=== PATIENT | male | born 1935 | race Caucasian/White ===

== ENCOUNTER 2017-10-11 04:24 | Inpatient (IN) | payer MEDICARE, OTHER ==
[2017-10-11] MEDS ORDERED: Albuterol/Ipratropium 3.0-0.5 MG/3 ML Neb Soln NEB ONE (04:28)
[2017-10-11] MEDS ORDERED: Lactated Ringers 1,000 ML IV ONE ×2 (04:30→14:00)
[2017-10-11] MEDS ORDERED: cefTRIAXone 1 GM Vial IVPUSH ONE (04:30)
--- NOTE | 2017-10-11 04:36 | EDM.PDOC ---
ED HPI GENERAL MEDICAL PROBLEM - General Chief Complaint: Respiratory Problem Stated Complaint: Shortness of breath/Fever Time Seen by Provider: 10/11/17 04:27 Source of Information: Reports: Patient, Family, Old Records, RN, RN Notes Reviewed History Limitations: Reports: No Limitations - History of Present Illness INITIAL COMMENTS - FREE TEXT/NARRATIVE: Patient presents emergency room at [facility] complaining of worsening shortness of breath, cough, fever, and weakness. The symptoms began well over a week ago. The patient was seen at the [facility] by his PCP last Wednesday. It was felt at that time the patient had an acute COPD exacerbation, therefore he was placed on prednisone burst dose and was told to follow-up as symptoms warrant. The patient states that since his clinic visit, his shortness of breath has progressively gotten worse. The patient states that his cough is also becoming more productive. The patient is had low-grade fevers at home. The patient is on home oxygen at 2 L. The patient states he tried to refill his take this morning and was unable to. It is not exactly clear if the patient has been without his oxygen throughout the day today. The patient states that he has only slept for the past couple of hours. The patient states that his chest hurts from coughing. This chest discomfort radiates to his back. The patient also complains of a slight headache. The patient states his temperature at home was 100.8 around 22:30 last night. Otherwise no other concerns. Onset Date: 10/04/17 Duration: Getting Worse Location: Reports: Chest Quality: Reports: Burning Severity: Mild Improves with: Reports: Rest Worsens with: Reports: Breathing, Other (harsh cough) Associated Symptoms: Reports: cough w sputum, Shortness of Breath Treatments CHEMISTRY DEPARTMENT CHAIR: Reports: Other (see below) (See HPI) Chest/Upper Back Pain Score (Numeric/FACES): 4 - Related Data Allergies Allergy/AdvReac Type Severity Reaction Status Date / Time No Known Allergies Allergy Verified 10/11/17 04:25 ED ROS GENERAL - Review of Systems Review Of Systems: See Below Constitutional: Reports: Fever, Chills, Weakness HEENT: Reports: No Symptoms Respiratory: Reports: Shortness of Breath, Wheezing, Cough, Sputum Cardiovascular: Denies: Chest Pain, Palpitations GI/Abdominal: Denies: Abdominal Pain, Nausea, Vomiting Skin: Reports: No Symptoms Neurological: Reports: Headache. Denies: Dizziness, Numbness, Paresthesia, Tingling ED EXAM, GENERAL - Physical Exam Exam: See Below Exam Limited By: No Limitations General Appearance: Alert, No Apparent Distress Respiratory/Chest: No Respiratory Distress, Decreased Breath Sounds, Rhonchi, Wheezing Cardiovascular: Normal Peripheral Pulses, Regular Rate, Rhythm Peripheral Pulses: 2+: Radial (L), Radial (R) GI/Abdominal: Normal Bowel Sounds, Soft, Non-Tender Neurological: Alert, Oriented Skin Exam: Warm, Dry, Intact, Normal Color EKG INTERPRETATION EKG Date: 10/11/17 Time: 04:40 Rhythm: NSR Rate (Beats/Min): 108 [place]: Normal P-Wave: Present QRS: Normal ST-T: Normal QT: Normal AL/PQ Interval: 0.14 Comparison: No Change EKG Interpretation Comments: 1. Sinus Tachycardia 2. Abnormal Rhythm ECG Course - Vital Signs Last Recorded V/S: Last Vital Signs Temp 37.9 C 10/11/17 04:25 Pulse 109 H 10/11/17 05:38 Resp 22 H 10/11/17 05:38 BP 122/63 10/11/17 05:38 Pulse Ox 92 L 10/11/17 05:38 - Orders/Labs/Meds Orders: Active Orders 24 hr Category Date Time Status Admission Status [Patient Status] [ADT] Routine ADT 10/11/17 05:59 Ordered RT Aerosol Therapy [RC] ASDIRECTED Care 10/11/17 04:28 Active Chest 2V [CR] Stat Exams 10/11/17 04:27 Taken CULTURE BLOOD [BC] Stat Lab 10/11/17 04:51 Received CULTURE BLOOD [BC] Stat Lab 10/11/17 05:00 Received UA W/MICROSCOPIC [URIN] Stat Lab 10/11/17 05:54 Ordered Sodium Chloride 0.9% [Saline Flush] Med 10/11/17 04:28 Active 10 ml FLUSH ASDIRECTED PRN Blood Culture x2 Reflex Set [OM.PC] Stat Oth 10/11/17 04:27 Ordered Peripheral IV Insertion Adult [OM.PC] Routine Oth 10/11/17 04:28 Ordered Medication Orders Sodium Chloride (Saline Flush) 10 ml FLUSH ASDIRECTED PRN PRN Reason: Keep Vein Open Labs: Laboratory Tests 10/11/17 10/11/17 10/11/17 Range/Units 04:51 04:51 04:51 WBC 29.0 H* (4.0-10.0) x10^3/uL RBC 5.02 (4.5-6.0) x10^6/uL Hgb 17.1 (14.0-18.0) g/dL Hct 50.7 (40.0-52.0) % MCV 101.0 H (78.0-93.0) fL MCH 34.1 H (26.0-32.0) pg MCHC 33.7 (32.0-36.0) g/dL RDW Coeff of Kayli 14.3 (10.0-15.0) % Plt Count 203 (130-400) x10^3/uL Add Manual Diff Yes Neutrophils % (Manual) 46 L (50-80) % Band Neutrophils % 7 H (0-6) % Lymphocytes % (Manual) 38 (25-50) % Monocytes % (Manual) 6 (2-11) % Eosinophils % (Manual) 1 (0-4) % Blast Cells % 2 H (0) % Smudge Cells Moderate H Platelet Estimate Adequate POC ABG pH (7.35-7.45) POC ABG pCO2 (35-45) mmHG POC ABG pO2 (80-105) mmHG POC ABG HCO3 (22-26) mmol/L POC ABG Total CO2 (23-27) mmol/L POC ABG O2 Sat (95-98) % POC ABG Base Excess (-2-3) mmol/L POC FiO2 Sodium 138 (136-145) mmol/L Potassium 3.9 (3.5-5.1) mmol/L Chloride 101 (98-107) mmol/L Carbon Dioxide 30 (21-32) mmol/L Anion Gap 10.9 (10-20) mmol/L BUN 16 (7-18) mg/dL Creatinine 1.0 (0.70-1.30) mg/dL Est Cr Clr Drug Dosing 63.59 mL/min Estimated GFR (MDRD) > 60 Glucose 155 H (74-106) mg/dL Lactic Acid 1.0 (0.4-2.0) mmol/L Calcium 8.5 (8.5-10.1) mg/dL Corrected Calcium 8.58 (8.5-10.1) mg/dL Total Bilirubin 1.0 (0.2-1.0) mg/dL AST 17 (15-37) U/L ALT 25 (16-63) U/L Alkaline Phosphatase 79 (46-116) U/L Creatine Kinase (39-308) U/L Troponin I (<=0.056) ng/mL C-Reactive Protein 4.2 H (<=0.9) mg/dL Total Protein 7.2 (6.4-8.2) g/dL Albumin 3.9 (3.4-5.0) g/dL Globulin 3.3 Albumin/Globulin Ratio 1.18 Urine Color (YELLOW) Urine Appearance (CLEAR) Urine pH (5.0-8.0) Ur Specific Orma Urine Protein (NEGATIVE) mg/dL Urine Glucose (UA) (NEGATIVE) mg/dL Urine Ketones (NEGATIVE) mg/dL Urine Occult Blood (NEGATIVE) Urine Nitrite (NEGATIVE) Urine Bilirubin (NEGATIVE) Urine Urobilinogen (0.2) EU/dL Ur Leukocyte Esterase (NEGATIVE) Urine RBC (NOT SEEN) /HPF Urine WBC (NOT SEEN) /HPF Ur Squamous Epith Cells (NEGATIVE) /HPF Urine Bacteria (NEGATIVE) /HPF Urine Mucus (NEGATIVE) /LPF 10/11/17 10/11/17 10/11/17 Range/Units 04:51 05:14 05:54 WBC (4.0-10.0) x10^3/uL RBC (4.5-6.0) x10^6/uL Hgb (14.0-18.0) g/dL Hct (40.0-52.0) % MCV (78.0-93.0) fL MCH (26.0-32.0) pg MCHC (32.0-36.0) g/dL RDW Coeff of Kayli (10.0-15.0) % Plt Count (130-400) x10^3/uL Add Manual Diff Neutrophils % (Manual) (50-80) % Band Neutrophils % (0-6) % Lymphocytes % (Manual) (25-50) % Monocytes % (Manual) (2-11) % Eosinophils % (Manual) (0-4) % Blast Cells % (0) % Smudge Cells Platelet Estimate POC ABG pH 7.450 (7.35-7.45) POC ABG pCO2 39 (35-45) mmHG POC ABG pO2 62 L (80-105) mmHG POC ABG HCO3 27 H (22-26) mmol/L POC ABG Total CO2 28 H (23-27) mmol/L POC ABG O2 Sat 92 L (95-98) % POC ABG Base Excess 3 (-2-3) mmol/L POC FiO2 0.36 Sodium (136-145) mmol/L Potassium (3.5-5.1) mmol/L Chloride (98-107) mmol/L Carbon Dioxide (21-32) mmol/L Anion Gap (10-20) mmol/L BUN (7-18) mg/dL Creatinine (0.70-1.30) mg/dL Est Cr Clr Drug Dosing mL/min Estimated GFR (MDRD) Glucose (74-106) mg/dL Lactic Acid (0.4-2.0) mmol/L Calcium (8.5-10.1) mg/dL Corrected Calcium (8.5-10.1) mg/dL Total Bilirubin (0.2-1.0) mg/dL AST (15-37) U/L ALT (16-63) U/L Alkaline Phosphatase (46-116) U/L Creatine Kinase 59 (39-308) U/L Troponin I < 0.017 (<=0.056) ng/mL C-Reactive Protein (<=0.9) mg/dL Total Protein (6.4-8.2) g/dL Albumin (3.4-5.0) g/dL Globulin Albumin/Globulin Ratio Urine Color Dark yellow H (YELLOW) Urine Appearance Clear (CLEAR) Urine pH 7.0 (5.0-8.0) Ur Specific Orma 1.015 Urine Protein Negative (NEGATIVE) mg/dL Urine Glucose (UA) Negative (NEGATIVE) mg/dL Urine Ketones Negative (NEGATIVE) mg/dL Urine Occult Blood Negative (NEGATIVE) Urine Nitrite Negative (NEGATIVE) Urine Bilirubin Negative (NEGATIVE) Urine Urobilinogen 0.2 (0.2) EU/dL Ur Leukocyte Esterase Negative (NEGATIVE) Urine RBC 0-5 (NOT SEEN) /HPF Urine WBC 0-5 (NOT SEEN) /HPF Ur Squamous Epith Cells Occasional H (NEGATIVE) /HPF Urine Bacteria Few H (NEGATIVE) /HPF Urine Mucus Few H (NEGATIVE) /LPF Meds: Medications Generic Name Dose Route Start Last Admin Trade Name Freq PRN Reason Stop Dose Admin Sodium Chloride 10 ml 10/11/17 04:28 Saline Flush FLUSH ASDIRECTED PRN Keep Vein Open Discontinued Medications Generic Name Dose Route Start Last Admin Trade Name Frank PRN Reason Stop Dose Admin Albuterol/Ipratropium 3 ml 10/11/17 04:28 10/11/17 04:47 Duoneb 3.0-0.5 Mg/3 Ml NEB 10/11/17 04:29 3 ml ONETIME ONE Administration Ceftriaxone Sodium 1 gm 10/11/17 04:30 10/11/17 04:56 Rocephin IVPUSH 10/11/17 04:31 1 gm ONETIME ONE Administration Lactated Ringer's 1,000 mls @ 999 mls/hr 10/11/17 04:30 10/11/17 04:56 Ringers, Lactated IV 10/11/17 05:30 999 mls/hr ONETIME ONE Administration - Radiology Interpretation Free Text/Narrative:: CXR: Probable bilateral bibasilar atelectasis versus parenchymal or pleural scarring. Somewhat indistinct nodularity in the left lower hemithorax may be secondary to superimposing basilar and osseous structures. Follow-up PA and lateral views of the chest suggested. See scanned report in EMR Departure - Departure Time of Disposition: 06:05 Disposition: Admitted As Inpatient 67 Condition: Good Clinical Impression: Pneumonia Qualifiers: Pneumonia type: due to unspecified organism Laterality: left Lung location: lower lobe of lung Qualified Code(s): J18.1 - Lobar pneumonia, unspecified organism - Discharge Information ED Communication - ED Communication Date/Time Date: 10/11/17 Time Called: 05:55 - Discussed Case With (1) Discussed Case With (1): Admitting Provider (Dr. Yoder) - Conversation Summary Admitting Provider Agreed to Patient's Admission: Yes Patient Aware of Amendments fo Care Plan: Yes - Problem List Review Problem List Initiated/Reviewed/Updated: Yes - My Orders Last 24 Hours: My Active Orders 10/11/17 04:27 Chest 2V [CR] Stat Blood Culture x2 Reflex Set [OM.PC] Stat 10/11/17 04:28 RT Aerosol Therapy [RC] ASDIRECTED Sodium Chloride 0.9% [Saline Flush] 10 ml FLUSH ASDIRECTED PRN Peripheral IV Insertion Adult [OM.PC] Routine 10/11/17 04:51 CULTURE BLOOD [BC] Stat 10/11/17 05:00 CULTURE BLOOD [BC] Stat 10/11/17 05:54 UA W/MICROSCOPIC [URIN] Stat 10/11/17 05:59 Admission Status [Patient Status] [ADT] Routine - Assessment/Plan Last 24 Hours: My Active Orders 10/11/17 04:27 Chest 2V [CR] Stat Blood Culture x2 Reflex Set [OM.PC] Stat 10/11/17 04:28 RT Aerosol Therapy [RC] ASDIRECTED Sodium Chloride 0.9% [Saline Flush] 10 ml FLUSH ASDIRECTED PRN Peripheral IV Insertion Adult [OM.PC] Routine 10/11/17 04:51 CULTURE BLOOD [BC] Stat 10/11/17 05:00 CULTURE BLOOD [BC] Stat 10/11/17 05:54 UA W/MICROSCOPIC [URIN] Stat 10/11/17 05:59 Admission Status [Patient Status] [ADT] Routine Assessment:: Pneumonia Plan: Case discussed with Dr. Yoder. Patient will be admitted acute for pneumonia. Dr. Yoder will admit patient for Dr. Monzon.
[2017-10-11 05:48] LABS: CHLORIDE,CL 101 mmol/L (98-107); SODIUM,NA 138 mmol/L (136-145)
--- NOTE | 2017-10-11 07:07 | PCM.HP ---
H&P History of Present Illness - General Date of Service: 10/11/17 Admit Problem/Dx: Admission Diagnosis/Problem Admission Diagnosis/Problem Pneumonia Source of Information: Patient History Limitations: Reports: No Limitations - History of Present Illness Initial Comments - Free Text/Narative: Chief complaint: Shortness of breath and cough Mr. Rodriguez is an 82-year-old male with COPD. CLL started having cough productive of white sputum, coryza., Sore chest from coughing 6 days ago. Patient received 20 mg of prednisone for COPD exacerbation felt better for a few days and then for the last 2 days has had increased shortness of breath, cough still productive of whitish sputum, chest pain with coughing and headache. Patient has had some night sweats chills and fever. Temperature was 100.8 last night and he did not sleep all night. In the emergency room he was found to have probable right lower lobe pneumonia, white count of 29,000 with a baseline white count of 19,000 and he is admitted for treatment of pneumonia Chest/Upper Back Pain Score (Numeric/FACES): 4 - Related Data Allergies/Adverse Reactions: Allergies Allergy/AdvReac Type Severity Reaction Status Date / Time No Known Allergies Allergy Verified 10/11/17 04:25 Past Medical History HEENT History: Reports: Hard of Hearing Cardiovascular History: Reports: None Respiratory History: Reports: COPD (Patient is on home O2, 2 L at rest, up to 4 L with activity), Other (See Below) (Asbestosis) Gastrointestinal History: Reports: None Genitourinary History: Reports: Other (See Below) (Bladder cancer, just finished 3 weeks of BCG installation which he receives every 3 months. Patient is currently cancer free. He self catheters twice a day) Musculoskeletal History: Reports: None Neurological History: Reports: None Psychiatric History: Reports: None Endocrine/Metabolic History: Reports: None Hematologic History: Reports: Other (See Below) (Patient has CLL without any treatment. 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) Oncologic (Cancer) History: Reports: Leukemia (CLL) Dermatologic History: Reports: None - Infectious Disease History Infectious Disease History: Reports: None - Past Surgical History HEENT Surgical History: Reports: Tonsillectomy GI Surgical History: Reports: Hernia, Inguinal (Right), Polypectomy (Has not had a colonoscopy many years, no family history of colon cancer) Male Surgical History: Reports: TURBT-Transurethral Resection of Bladder Tumor Social & Family History - Family History Family Medical History: Noncontributory - Tobacco Use Smoking Status *Q: Former Smoker (quit 30 years ago) Used Tobacco, but Quit: Yes Month/Year Tobacco Last Used: 30 years ago - Alcohol Use Alcohol Use History: Yes Total Drinks Per Week Comment: Has a half a beer every few weeks - Recreational Drug Use Recreational Drug Use: No - Living Situation & Occupation Living situation: Reports: Occupation: Retired (Patient is with two-story house 2 children are in the [facility] area one incident [place] and one is in [place]. 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) H&P Review of Systems - Review of Systems: Review Of Systems: See Below General: Reports: Fever, Chills, Night Sweats HEENT: Reports: Headaches, Hearing Changes, Rhinitis, Post Nasal Drip, Other ( hAs visual changes on his right eye with cataract and question retinal problem) Pulmonary: Reports: Shortness of Breath, Wheezing, Pleuritic Chest Pain, Cough, Sputum Cardiovascular: Reports: No Symptoms Gastrointestinal: Reports: Constipation (Constipations intermittently) Genitourinary: Reports: Retention (Patient up at least once a night, he does self catheters twice a day but does spontaneously urinate) Musculoskeletal: Reports: No Symptoms Skin: Reports: Dryness (Patient has dry spots on his elbows where he leans frequently) Psychiatric: Reports: No Symptoms Neurological: Reports: No Symptoms Hematologic/Lymphatic: Reports: Easy Bleeding (Baby aspirin every other day because of nosebleeds) Exam - Exam Exam: See Below - Vital Signs Vital Signs: Last Vital Signs Temp 100.3 F 10/11/17 04:25 Pulse 110 H 10/11/17 06:00 Resp 22 H 10/11/17 06:00 BP 127/77 10/11/17 06:00 Pulse Ox 93 L 10/11/17 06:00 Weight: 175 lb - Exam Quality Assessment: Supplemental Oxygen General: Alert, Oriented, Cooperative, Other (Coughing frequently) HEENT: Conjunctiva Clear, EOMI, Nares Patent, Other (Right lid is mildly ptotic intermittently) Neck: Supple, +2 Carotid Pulse wo Bruit Lungs: Rales, Rhonchi, Wheezing (Bilaterally at the bases in about senior care up on the right) Cardiovascular: Regular Rate, Regular Rhythm, Normal S2 GI/Abdominal Exam: Normal Bowel Sounds, Soft, Non-Tender, No Organomegaly, No Distention (Male) Exam: No Hernia Back Exam: Normal Inspection Extremities: Normal Inspection, Normal Range of Motion, Non-Tender, No Pedal Edema Skin: Warm, Dry, Intact, Other (Thickened skin seen on the left elbow, right elbow not seen because of IV dressing) Neurological: Cranial Nerves Intact, Strength Equal Bilateral, Normal Speech, Normal Tone Neuro Extensive - Mental Status: Alert, Normal Mood/Affect, Normal Cognition, Memory Intact Psychiatric: Alert, Normal Affect, Normal Mood - Patient Data Lab Results Last 24 hrs: Laboratory Results - last 24 hr 10/11/17 10/11/17 10/11/17 Range/Units 04:51 04:51 04:51 WBC 29.0 H* (4.0-10.0) x10^3/uL RBC 5.02 (4.5-6.0) x10^6/uL Hgb 17.1 (14.0-18.0) g/dL Hct 50.7 (40.0-52.0) % MCV 101.0 H (78.0-93.0) fL MCH 34.1 H (26.0-32.0) pg MCHC 33.7 (32.0-36.0) g/dL RDW Coeff of Kayli 14.3 (10.0-15.0) % Plt Count 203 (130-400) x10^3/uL Add Manual Diff Yes Neutrophils % (Manual) 46 L (50-80) % Band Neutrophils % 7 H (0-6) % Lymphocytes % (Manual) 38 (25-50) % Monocytes % (Manual) 6 (2-11) % Eosinophils % (Manual) 1 (0-4) % Blast Cells % 2 H (0) % Smudge Cells Moderate H Platelet Estimate Adequate POC ABG pH (7.35-7.45) POC ABG pCO2 (35-45) mmHG POC ABG pO2 (80-105) mmHG POC ABG HCO3 (22-26) mmol/L POC ABG Total CO2 (23-27) mmol/L POC ABG O2 Sat (95-98) % POC ABG Base Excess (-2-3) mmol/L POC FiO2 Sodium 138 (136-145) mmol/L Potassium 3.9 (3.5-5.1) mmol/L Chloride 101 (98-107) mmol/L Carbon Dioxide 30 (21-32) mmol/L Anion Gap 10.9 (10-20) mmol/L BUN 16 (7-18) mg/dL Creatinine 1.0 (0.70-1.30) mg/dL Est Cr Clr Drug Dosing 63.59 mL/min Estimated GFR (MDRD) > 60 Glucose 155 H (74-106) mg/dL Lactic Acid 1.0 (0.4-2.0) mmol/L Calcium 8.5 (8.5-10.1) mg/dL Corrected Calcium 8.58 (8.5-10.1) mg/dL Total Bilirubin 1.0 (0.2-1.0) mg/dL AST 17 (15-37) U/L ALT 25 (16-63) U/L Alkaline Phosphatase 79 (46-116) U/L Creatine Kinase (39-308) U/L Troponin I (<=0.056) ng/mL C-Reactive Protein 4.2 H (<=0.9) mg/dL Total Protein 7.2 (6.4-8.2) g/dL Albumin 3.9 (3.4-5.0) g/dL Globulin 3.3 Albumin/Globulin Ratio 1.18 Urine Color (YELLOW) Urine Appearance (CLEAR) Urine pH (5.0-8.0) Ur Specific Equality Urine Protein (NEGATIVE) mg/dL Urine Glucose (UA) (NEGATIVE) mg/dL Urine Ketones (NEGATIVE) mg/dL Urine Occult Blood (NEGATIVE) Urine Nitrite (NEGATIVE) Urine Bilirubin (NEGATIVE) Urine Urobilinogen (0.2) EU/dL Ur Leukocyte Esterase (NEGATIVE) Urine RBC (NOT SEEN) /HPF Urine WBC (NOT SEEN) /HPF Ur Squamous Epith Cells (NEGATIVE) /HPF Urine Bacteria (NEGATIVE) /HPF Urine Mucus (NEGATIVE) /LPF 10/11/17 10/11/17 10/11/17 Range/Units 04:51 05:14 05:54 WBC (4.0-10.0) x10^3/uL RBC (4.5-6.0) x10^6/uL Hgb (14.0-18.0) g/dL Hct (40.0-52.0) % MCV (78.0-93.0) fL MCH (26.0-32.0) pg MCHC (32.0-36.0) g/dL RDW Coeff of Kayli (10.0-15.0) % Plt Count (130-400) x10^3/uL Add Manual Diff Neutrophils % (Manual) (50-80) % Band Neutrophils % (0-6) % Lymphocytes % (Manual) (25-50) % Monocytes % (Manual) (2-11) % Eosinophils % (Manual) (0-4) % Blast Cells % (0) % Smudge Cells Platelet Estimate POC ABG pH 7.450 (7.35-7.45) POC ABG pCO2 39 (35-45) mmHG POC ABG pO2 62 L (80-105) mmHG POC ABG HCO3 27 H (22-26) mmol/L POC ABG Total CO2 28 H (23-27) mmol/L POC ABG O2 Sat 92 L (95-98) % POC ABG Base Excess 3 (-2-3) mmol/L POC FiO2 0.36 Sodium (136-145) mmol/L Potassium (3.5-5.1) mmol/L Chloride (98-107) mmol/L Carbon Dioxide (21-32) mmol/L Anion Gap (10-20) mmol/L BUN (7-18) mg/dL Creatinine (0.70-1.30) mg/dL Est Cr Clr Drug Dosing mL/min Estimated GFR (MDRD) Glucose (74-106) mg/dL Lactic Acid (0.4-2.0) mmol/L Calcium (8.5-10.1) mg/dL Corrected Calcium (8.5-10.1) mg/dL Total Bilirubin (0.2-1.0) mg/dL AST (15-37) U/L ALT (16-63) U/L Alkaline Phosphatase (46-116) U/L Creatine Kinase 59 (39-308) U/L Troponin I < 0.017 (<=0.056) ng/mL C-Reactive Protein (<=0.9) mg/dL Total Protein (6.4-8.2) g/dL Albumin (3.4-5.0) g/dL Globulin Albumin/Globulin Ratio Urine Color Dark yellow H (YELLOW) Urine Appearance Clear (CLEAR) Urine pH 7.0 (5.0-8.0) Ur Specific Equality 1.015 Urine Protein Negative (NEGATIVE) mg/dL Urine Glucose (UA) Negative (NEGATIVE) mg/dL Urine Ketones Negative (NEGATIVE) mg/dL Urine Occult Blood Negative (NEGATIVE) Urine Nitrite Negative (NEGATIVE) Urine Bilirubin Negative (NEGATIVE) Urine Urobilinogen 0.2 (0.2) EU/dL Ur Leukocyte Esterase Negative (NEGATIVE) Urine RBC 0-5 (NOT SEEN) /HPF Urine WBC 0-5 (NOT SEEN) /HPF Ur Squamous Epith Cells Occasional H (NEGATIVE) /HPF Urine Bacteria Few H (NEGATIVE) /HPF Urine Mucus Few H (NEGATIVE) /LPF Result Diagrams: 10/11/17 04:51 10/11/17 04:51 - Problem List (1) Pneumonia SNOMED Code(s): 915109155 ICD Code: J18.9 - PNEUMONIA, UNSPECIFIED ORGANISM Status: Acute Current Visit: Yes Qualifiers: Pneumonia type: due to unspecified organism Laterality: left Lung location: lower lobe of lung Qualified Code(s): J18.1 - Lobar pneumonia, unspecified organism (2) CLL (chronic lymphocytic leukemia) SNOMED Code(s): 09402500 ICD Code: C91.90 - LYMPHOID LEUKEMIA, UNSPECIFIED NOT HAVING ACHIEVED REMISSION Status: Acute Current Visit: Yes (3) COPD (chronic obstructive pulmonary disease) SNOMED Code(s): 72220551 ICD Code: J44.9 - CHRONIC OBSTRUCTIVE PULMONARY DISEASE, UNSPECIFIED Status : Acute Current Visit: Yes (4) Pulmonary asbestosis SNOMED Code(s): 95207863 ICD Code: J61 - PNEUMOCONIOSIS DUE TO ASBESTOS AND OTHER MINERAL FIBERS Status: Acute Current Visit: Yes (5) Bladder cancer SNOMED Code(s): 220666618 ICD Code: C67.9 - MALIGNANT NEOPLASM OF BLADDER, UNSPECIFIED Status: Acute Current Visit: Yes Problem List Initiated/Reviewed/Updated: Yes Orders Last 24hrs: Active Orders 24 hr Category Date Time Status Admission Status [Patient Status] [ADT] Routine ADT 10/11/17 05:59 Active RT Aerosol Therapy [RC] ASDIRECTED Care 10/11/17 04:28 Active Chest 2V [CR] Stat Exams 10/11/17 04:27 Taken CULTURE BLOOD [BC] Stat Lab 10/11/17 04:51 Received CULTURE BLOOD [BC] Stat Lab 10/11/17 05:00 Received UA W/MICROSCOPIC [URIN] Stat Lab 10/11/17 05:54 Ordered Sodium Chloride 0.9% [Saline Flush] Med 10/11/17 04:28 Active 10 ml FLUSH ASDIRECTED PRN Blood Culture x2 Reflex Set [OM.PC] Stat Oth 10/11/17 04:27 Ordered Peripheral IV Insertion Adult [OM.PC] Routine Oth 10/11/17 04:28 Ordered Medication Orders Sodium Chloride (Saline Flush) 10 ml FLUSH ASDIRECTED PRN PRN Reason: Keep Vein Open Assessment/Plan Comment:: 1. Right lower lobe pneumonia: We'll treat with Rocephin and azithromycin and doxycycline, oxygen as needed up to 4 L, aggressive pulmonary toilet with flutter valve and nebulizations 2. Bladder CA: Continue with self 3. CLL: Follow CBC, baseline is 19,000 white count 4. Easy bleeding: Start low-dose Lovenox but if there is any bleeding stop Patient wishes to Code level 2 5. COPD: Continue oral steroids, switched to many meds
[2017-10-11] MEDS ORDERED: Enoxaparin 30 MG/0.3 ML Syringe SUBCUT SCH (07:45)
[2017-10-11] MEDS: Albuterol/Ipratropium 3.0-0.5 MG/3 ML Neb Soln NEB SCH ×3 (08:10→14:41)
[2017-10-11] MEDS: Aspirin 81 MG Tab.EC PO SCH (09:35)
[2017-10-11] MEDS: predniSONE 20 MG Tab PO SCH (09:35)
[2017-10-11] MEDS: Azithromycin 250 MG Tab PO SCH (09:35)
--- NOTE | 2017-10-11 14:16 | PCM.SN ---
- Free Text/Narrative Note: Called by nursing due to hypotension. Went to assess patient. He is resting in bed comfortably and denies any concerns. He is awake and answers questions appropriately. No increase in shortness of breath. Has chest wall soreness from coughing but denies any other chest pain. Vitals reviewed. Heart with RRR and normal S1 and S2. Lungs with diffusely diminished breath sounds and wheezing throughout. Abdomen soft, nontender, nondistended. Will give 500 cc bolus of LR and check BP every 15 minutes until stable x 2. Nursing and patient comfortable with this plan. Confirmed with patient that he is DNR/DNI. He is ok with transfer to [place] if needed from a medication standpoint (i.e. if he needs pressors).
[2017-10-12] MEDS: Albuterol/Ipratropium 3.0-0.5 MG/3 ML Neb Soln NEB SCH ×8 (04:06→22:46)
[2017-10-12] MEDS: cefTRIAXone 1 GM Vial IVPUSH SCH ×2 (04:07→20:09)
[2017-10-12] MEDS: Simvastatin 20 MG Tab PO SCH ×2 (04:07→20:10)
[2017-10-12] MEDS: Aspirin 81 MG Tab.EC PO SCH (08:07)
[2017-10-12] MEDS: predniSONE 20 MG Tab PO SCH (08:07)
[2017-10-12] MEDS: Azithromycin 250 MG Tab PO SCH (08:07)
[2017-10-12] MEDS: Sodium Chloride 0.9% 10 ML Syringe FLUSH PRN ×2 (08:13→20:09)
--- NOTE | 2017-10-12 10:59 | PCM.PN ---
- General Info Date of Service: 10/12/17 Subjective Update: Patient is feeling somewhat better this morning. Is still coughing but feels the sputum is more easily cleared than yesterday. No fever or chills. Breathing is at baseline. Appetite is good. Rib soreness is improved from yesterday. He has no other concerns. - Review of Systems General: Reports: No Symptoms HEENT: Reports: No Symptoms Pulmonary: Reports: Cough Cardiovascular: Reports: No Symptoms Gastrointestinal: Reports: No Symptoms Genitourinary: Reports: No Symptoms Musculoskeletal: Reports: No Symptoms Skin: Reports: No Symptoms - Patient Data Vitals - Most Recent: Last Vital Signs Temp 36.9 C 10/12/17 10:00 Pulse 87 10/12/17 10:00 Resp 20 10/12/17 10:00 BP 109/72 10/12/17 10:00 Pulse Ox 91 L 10/12/17 10:00 Weight - Most Recent: 74.843 kg I&O - Last 24 Hours: Intake & Output 10/11/17 10/12/17 10/12/17 22:59 06:59 14:59 Intake Total 680 680 540 Output Total 2600 3100 250 Balance -1920 -2420 290 Lab Results Last 24 Hours: Laboratory Results - last 24 hr 10/12/17 Range/Units 06:48 WBC 25.2 H* (4.0-10.0) x10^3/uL RBC 4.68 (4.5-6.0) x10^6/uL Hgb 16.0 (14.0-18.0) g/dL Hct 47.9 (40.0-52.0) % MCV 102.4 H (78.0-93.0) fL MCH 34.2 H (26.0-32.0) pg MCHC 33.4 (32.0-36.0) g/dL RDW Coeff of Kayli 14.4 (10.0-15.0) % Plt Count 200 (130-400) x10^3/uL Add Manual Diff Yes Neutrophils % (Manual) 38 L (50-80) % Lymphocytes % (Manual) 52 H (25-50) % Atypical Lymphs % 9 H (0) % Monocytes % (Manual) 1 L (2-11) % Smudge Cells Few H Platelet Estimate Adequate Osmar Results Last 24 Hours: Microbiology 10/11/17 05:00 Aerobic Blood Culture - Preliminary Blood - Venous - Lab Draw NO GROWTH AFTER 1 DAY Anaerobic Blood Culture - Preliminary NO GROWTH AFTER 1 DAY 10/11/17 04:51 Aerobic Blood Culture - Preliminary Blood - Venous NO GROWTH AFTER 1 DAY Anaerobic Blood Culture - Preliminary NO GROWTH AFTER 1 DAY 10/11/17 08:20 Gram Stain - Final Sputum - Expectorated Med Orders - Current: Current Medications Albuterol/Ipratropium (Duoneb 3.0-0.5 Mg/3 Ml) 3 ml NEB Q4HRRT [facility] Last Admin: 10/12/17 10:55 Dose: 3 ml Aspirin (Halfprin) 81 mg PO WITHBREAKFAST [facility] Last Admin: 10/12/17 08:07 Dose: 81 mg Azithromycin (Zithromax) 250 mg PO DAILY [facility] Last Admin: 10/12/17 08:07 Dose: 250 mg Ceftriaxone Sodium (Rocephin) 1 gm IVPUSH BEDTIME [facility] Last Admin: 10/12/17 04:07 Dose: Not Given Prednisone (Prednisone) 20 mg PO WITHBREAKFAST [facility] Last Admin: 10/12/17 08:07 Dose: 20 mg Simvastatin (Zocor) 20 mg PO BEDTIME [facility] Last Admin: 10/12/17 04:07 Dose: Not Given Sodium Chloride (Saline Flush) 10 ml FLUSH ASDIRECTED PRN PRN Reason: Keep Vein Open Last Admin: 10/12/17 08:13 Dose: 10 ml Discontinued Medications Albuterol/Ipratropium (Duoneb 3.0-0.5 Mg/3 Ml) 3 ml NEB ONETIME ONE Stop: 10/11/17 04:29 Last Admin: 10/11/17 04:47 Dose: 3 ml Ceftriaxone Sodium (Rocephin) 1 gm IVPUSH ONETIME ONE Stop: 10/11/17 04:31 Last Admin: 10/11/17 04:56 Dose: 1 gm Enoxaparin Sodium (Lovenox) 30 mg SUBCUT Q24H [facility] Last Admin: 10/11/17 11:37 Dose: Not Given Lactated Ringer's (Ringers, Lactated) 1,000 mls @ 999 mls/hr IV ONETIME ONE Stop: 10/11/17 05:30 Last Admin: 10/11/17 04:56 Dose: 999 mls/hr Lactated Ringer's (Ringers, Lactated) 1,000 mls @ 500 mls/hr IV ONETIME ONE Stop: 10/11/17 15:59 Last Admin: 10/11/17 14:00 Dose: 500 mls/hr - Exam General: Alert, Cooperative, No Acute Distress HEENT: Mucous Membr. Moist/[place] Neck: Supple, Trachea Midline, No Thyromegaly, Lymphadenopathy Lungs: Normal Respiratory Effort, Decreased Breath Sounds (but improved air movement compared to yesterday), Crackles (RLL), Rhonchi (RLL), Wheezing ( throughout) Cardiovascular: Regular Rate, Regular Rhythm, No Murmurs GI/Abdominal Exam: Normal Bowel Sounds, Soft, Non-Tender, No Organomegaly, No Distention, No Mass Extremities: Normal Inspection, Non-Tender, No Pedal Edema Skin: Warm, Dry, Intact - Problem List & Annotations (1) Pneumonia SNOMED Code(s): 935606011 Code(s): J18.9 - PNEUMONIA, UNSPECIFIED ORGANISM Status: Acute Current Visit: Yes Qualifiers: Pneumonia type: due to unspecified organism Laterality: left Lung location: lower lobe of lung Qualified Code(s): J18.1 - Lobar pneumonia, unspecified organism Annotation/Comment:: - Patient is feeling somewhat better today. - WBC downtrending but still quite high. He is also relatively immune compromised in the setting of his CLL. - Would advise a full 48 hours of parenteral antibiotics prior to dismissal home. He is in agreement. - Continue ceftriaxone and azithromycin with plan to transition to cefdinir and azithromycin for homegoing. - Blood cultures pending. - He did meet sepsis criteria on admission but no longer does. Will bolus IV fluids as needed. (2) COPD (chronic obstructive pulmonary disease) SNOMED Code(s): 67794906 Code(s): J44.9 - CHRONIC OBSTRUCTIVE PULMONARY DISEASE, UNSPECIFIED Status : Acute Current Visit: Yes Qualifiers: COPD type: COPD with acute exacerbation Qualified Code(s): J44.1 - Chronic obstructive pulmonary disease with (acute) exacerbation Annotation/Comment:: - Also has acute COPD exacerbation. - Antibiotics as above. - He is on a rather low dose of prednisone but is responding to this well. Will continue. - Continue neb treatments as well. (3) CLL (chronic lymphocytic leukemia) SNOMED Code(s): 55103354 Code(s): C91.90 - LYMPHOID LEUKEMIA, UNSPECIFIED NOT HAVING ACHIEVED REMISSION Status: Chronic Current Visit: Yes Annotation/Comment:: - Baseline WBC ~ 19,000. - Is not currently undergoing treatment for this. (4) Bladder cancer SNOMED Code(s): 705136981 Code(s): C67.9 - MALIGNANT NEOPLASM OF BLADDER, UNSPECIFIED Status: Chronic Current Visit: Yes Qualifiers: Bladder location: unspecified site Qualified Code(s): C67.9 - Malignant neoplasm of bladder, unspecified Annotation/Comment:: - Patient to continue BID self catheterizations. - Problem List Review Problem List Initiated/Reviewed/Updated: Yes - My Orders Last 24 Hours: My Active Orders 10/13/17 05:11 BASIC METABOLIC PANEL,BMP [CHEM] Routine CBC WITH AUTO DIFF [HEME] Routine - Assessment Assessment:: 82 yo male admitted with community acquired pneumonia and COPD exacerbation. Feeling some improved today. Labs also improving but WBC still quite high. - Plan Plan:: See details under problems above. As described above, do feel he would benefit from a full 48 hours of parenteral antibiotics in light of his medical history. Therefore, he will remain admitted for 1 more night. Continue ceftriaxone and azithromycin. Oxygen per nasal cannula as per home dosing. Continue flutter valve and nebulizations. Home medications continued. He is not on lovenox as he has a history of significant bleeding just from a daily aspirin. Will do SCD's and encourage ambulation. Anticipate he will be prepared for dismissal tomorrow as long as his WBC continues to improve. He is DNR/DNI - noted on admission and confirmed by myself yesterday.
[2017-10-13] MEDS: Albuterol/Ipratropium 3.0-0.5 MG/3 ML Neb Soln NEB SCH ×2 (03:00→06:54)
[2017-10-13] MEDS: Azithromycin 250 MG Tab PO SCH (07:27)
[2017-10-13] MEDS: predniSONE 20 MG Tab PO SCH (07:27)
[2017-10-13] MEDS: Aspirin 81 MG Tab.EC PO SCH (07:27)
[2017-10-13 07:48] LABS: CHLORIDE,CL 104 mmol/L (98-107); SODIUM,NA 139 mmol/L (136-145)
--- NOTE | 2017-10-13 08:28 | PCM.DCSUM1 ---
Discharge Summary - Hospital Course Brief History: Mr. Rodriguez is an 82 yo male admitted with community acquired pneumonia and COPD exacerbation after presenting to the ER for cough and shortness of breath worsening despite outpatient prednisone started the week prior. - Discharge Data Discharge Date: 10/13/17 Discharge Disposition: Home, Self-Care 01 Condition: Good - Discharge Diagnosis/Problem(s) (1) Sepsis SNOMED Code(s): 90174051 ICD Code: A41.9 - SEPSIS, UNSPECIFIED ORGANISM Status: Resolved Current Visit: Yes Problem Details: Patient did meet sepsis criteria on admission with tachycardia, tachypnea, and leukocytosis. This is secondary to his pneumonia which was treated as above. Sepsis criteria resolved as of yesterday morning. Qualifiers: Sepsis type: sepsis due to unspecified organism Qualified Code(s): A41.9 - Sepsis, unspecified organism (2) Pneumonia SNOMED Code(s): 864841888 ICD Code: J18.9 - PNEUMONIA, UNSPECIFIED ORGANISM Status: Acute Current Visit: Yes Problem Details: Diagnosis made based on history and leukocytosis. Chest x-ray initially read as positive but overread as negative. Significant leukocytosis on admission but patient has higher baseline given CLL. He has been treated with ceftriaxone and azithromycin. His symptoms have progressively improved and his WBC have downtrended nicely. Blood cultures are negative. Sputum cultures show streptococcus viridans. Susceptibilities pending. Patient will be discharged on cefdinir and azithromycin, and we will call if this needs to be adjusted. Qualifiers: Pneumonia type: due to unspecified organism Laterality: left Lung location: lower lobe of lung Qualified Code(s): J18.1 - Lobar pneumonia, unspecified organism (3) COPD (chronic obstructive pulmonary disease) SNOMED Code(s): 00233512 ICD Code: J44.9 - CHRONIC OBSTRUCTIVE PULMONARY DISEASE, UNSPECIFIED Status : Acute Current Visit: Yes Problem Details: Patient also with evidence of COPD exacerbation. Antibiotics as above. He has also been treated with prednisone and nebulizer treatments with good results as well. His prednisone will be tapered and he will resume his home inhaler/nebulizer regimen. Qualifiers: COPD type: COPD with acute exacerbation Qualified Code(s): J44.1 - Chronic obstructive pulmonary disease with (acute) exacerbation (4) CLL (chronic lymphocytic leukemia) SNOMED Code(s): 17349057 ICD Code: C91.90 - LYMPHOID LEUKEMIA, UNSPECIFIED NOT HAVING ACHIEVED REMISSION Status: Chronic Current Visit: Yes Problem Details: Baseline WBC ~ 19,000. Is not currently undergoing treatment for this. (5) Bladder cancer SNOMED Code(s): 860803979 ICD Code: C67.9 - MALIGNANT NEOPLASM OF BLADDER, UNSPECIFIED Status: Chronic Current Visit: Yes Problem Details: Patient continued BID self catheterizations. Qualifiers: Bladder location: unspecified site Qualified Code(s): C67.9 - Malignant neoplasm of bladder, unspecified - Patient Summary/Data Operative Procedure(s) Performed: none Complications: none Consults: none Labs Pending at D/C: none Recommended Follow-up Testing/Procedures: none Planned Operative Procedure(s) after DC: none Hospital Course: See details as above. Patient's symptoms, vital signs, and labs improved progressively. He is feeling much better today and is prepared for dismissal home. He will continue antibiotics and prednisone as well as his home inhaler/ nebulizer treatments. He will follow-up in clinic with me next week. - Patient Instructions Diet: Usual Diet as Tolerated Notify Provider of: Fever - Discharge Plan Prescriptions/Med Rec: Azithromycin [IJD: Azithromycin] 250 mg PO DAILY #3 tablet Cefdinir [Omnicef] 300 mg PO BID #8 cap predniSONE 20 mg PO ASDIRECTED #10 tablet Home Medications: Home Meds Aspirin [Lo-Dose Aspirin EC] 81 mg PO DAILY 10/11/17 [History] Fluticasone/Salmeterol [Advair 250-50 Diskus] 1 puff INH BID 10/11/17 [History] Simvastatin [Zocor] 40 mg PO BEDTIME 10/11/17 [History] Tiotropium [Spiriva Handihaler] 2 puff INH DAILY 10/11/17 [History] Azithromycin [IJD: Azithromycin] 250 mg PO DAILY #3 tablet 10/13/17 [Rx] Cefdinir [Omnicef] 300 mg PO BID #8 cap 10/13/17 [Rx] predniSONE 20 mg PO ASDIRECTED #10 tablet 10/13/17 [Rx] Referrals: Shannon Monzon MD [Primary Care Provider] - 10/20/17 11:00 am (You have a follow up appt. with Dr. Monzon on October 19, 2017 at 11:00 at [facility]) - Discharge Summary/Plan Comment DC Time >30 min.: No - General Info Date of Service: 10/13/17 Subjective Update: Patient states he feels much better today. He is still coughing at times but this is more loose and less tight. His shortness of breath remains at baseline. No chest pain, fever, or chills. He is interested in going home today. - Review of Systems General: Reports: No Symptoms HEENT: Reports: No Symptoms Pulmonary: Reports: Cough Cardiovascular: Reports: No Symptoms Gastrointestinal: Reports: No Symptoms Genitourinary: Reports: No Symptoms Musculoskeletal: Reports: No Symptoms Skin: Reports: No Symptoms - Patient Data Vitals - Most Recent: Last Vital Signs Temp 36.6 C 10/13/17 05:30 Pulse 86 10/13/17 05:30 Resp 19 10/13/17 05:30 BP 119/53 L 10/13/17 05:30 Pulse Ox 94 L 10/13/17 06:55 Weight - Most Recent: 74.752 kg I&O - Last 24 hours: Intake & Output 10/12/17 10/13/17 10/13/17 22:59 06:59 14:59 Intake Total 720 550 Output Total 700 2000 Balance 20 -1450 Lab Results - Last 24 hrs: Laboratory Results - last 24 hr 10/13/17 10/13/17 Range/Units 06:38 06:38 WBC 22.7 H* (4.0-10.0) x10^3/uL RBC 4.41 L (4.5-6.0) x10^6/uL Hgb 14.8 (14.0-18.0) g/dL Hct 45.1 (40.0-52.0) % MCV 102.3 H (78.0-93.0) fL MCH 33.6 H (26.0-32.0) pg MCHC 32.8 (32.0-36.0) g/dL RDW Coeff of Kayli 14.1 (10.0-15.0) % Plt Count 204 (130-400) x10^3/uL Add Manual Diff Yes Neutrophils % (Manual) 36 L (50-80) % Lymphocytes % (Manual) 64 H (25-50) % Platelet Estimate Adequate Anisocytosis 1+ slight H Sodium 139 (136-145) mmol/L Potassium 3.7 (3.5-5.1) mmol/L Chloride 104 (98-107) mmol/L Carbon Dioxide 29 (21-32) mmol/L Anion Gap 9.7 L (10-20) mmol/L BUN 12 (7-18) mg/dL Creatinine 0.8 (0.70-1.30) mg/dL Est Cr Clr Drug Dosing 76.57 mL/min Estimated GFR (MDRD) > 60 Glucose 102 (74-106) mg/dL Calcium 8.5 (8.5-10.1) mg/dL ALEM Results - Last 24 hrs: Microbiology 10/11/17 05:00 Aerobic Blood Culture - Preliminary Blood - Venous - Lab Draw NO GROWTH AFTER 2 DAYS Anaerobic Blood Culture - Preliminary NO GROWTH AFTER 2 DAYS 10/11/17 04:51 Aerobic Blood Culture - Preliminary Blood - Venous NO GROWTH AFTER 2 DAYS Anaerobic Blood Culture - Preliminary NO GROWTH AFTER 2 DAYS 10/11/17 08:20 Gram Stain - Final Sputum - Expectorated Sputum Culture - Preliminary Alpha Hemolytic Strep Med Orders - Current: Current Medications Albuterol/Ipratropium (Duoneb 3.0-0.5 Mg/3 Ml) 3 ml NEB Q4HRRT [facility] Last Admin: 10/13/17 06:54 Dose: 3 ml Aspirin (Halfprin) 81 mg PO WITHBREAKFAST [facility] Last Admin: 10/13/17 07:27 Dose: 81 mg Azithromycin (Zithromax) 250 mg PO DAILY [facility] Last Admin: 10/13/17 07:27 Dose: 250 mg Ceftriaxone Sodium (Rocephin) 1 gm IVPUSH BEDTIME [facility] Last Admin: 10/12/17 20:09 Dose: 1 gm Prednisone (Prednisone) 20 mg PO WITHBREAKFAST [facility] Last Admin: 10/13/17 07:27 Dose: 20 mg Simvastatin (Zocor) 20 mg PO BEDTIME [facility] Last Admin: 10/12/17 20:10 Dose: 20 mg Sodium Chloride (Saline Flush) 10 ml FLUSH ASDIRECTED PRN PRN Reason: Keep Vein Open Last Admin: 10/12/17 20:09 Dose: 10 ml Discontinued Medications Albuterol/Ipratropium (Duoneb 3.0-0.5 Mg/3 Ml) 3 ml NEB ONETIME ONE Stop: 10/11/17 04:29 Last Admin: 10/11/17 04:47 Dose: 3 ml Ceftriaxone Sodium (Rocephin) 1 gm IVPUSH ONETIME ONE Stop: 10/11/17 04:31 Last Admin: 10/11/17 04:56 Dose: 1 gm Enoxaparin Sodium (Lovenox) 30 mg SUBCUT Q24H [facility] Last Admin: 10/11/17 11:37 Dose: Not Given Lactated Ringer's (Ringers, Lactated) 1,000 mls @ 999 mls/hr IV ONETIME ONE Stop: 10/11/17 05:30 Last Admin: 10/11/17 04:56 Dose: 999 mls/hr Lactated Ringer's (Ringers, Lactated) 1,000 mls @ 500 mls/hr IV ONETIME ONE Stop: 10/11/17 15:59 Last Admin: 10/11/17 14:00 Dose: 500 mls/hr - Exam General: Reports: Alert, Cooperative, No Acute Distress HEENT: Reports: Mucous Membr. Moist/[place] Neck: Reports: Supple, Trachea Midline, No Thyromegaly. Denies: Lymphadenopathy Lungs: Reports: Normal Respiratory Effort, Wheezing (scattered throughout) Cardiovascular: Reports: Regular Rate, Regular Rhythm, No Murmurs GI/Abdominal Exam: Normal Bowel Sounds, Soft, Non-Tender, No Organomegaly, No Distention, No Mass Extremities: Non-Tender, No Pedal Edema, Normal Capillary Refill Skin: Reports: Warm, Dry, Intact
== END 2017-10-13 10:25 | disposition home or self-care (01) | DRG 871 ==
LOC: VM.ED 04:24 → VM.MS 05:59
PROVIDERS: ADMIT Internal Medicine; ATTEND Family Medicine
DX: A41.9 Sepsis, unspecified organism (principal); J18.1 Lobar pneumonia, unspecified organism; J44.0 Chronic obstructive pulmonary disease with (acute) lower respiratory infection; R53.1 Weakness; R50.9 Fever, unspecified; R05 Cough; R51 Headache; R09.3 Abnormal sputum; R06.2 Wheezing; C91.10 Chronic lymphocytic leukemia of B-cell type not having achieved remission; J44.1 Chronic obstructive pulmonary disease with (acute) exacerbation; H54.7 Unspecified visual loss; K59.00 Constipation, unspecified; J61 Pneumoconiosis due to asbestos and other mineral fibers; C67.9 Malignant neoplasm of bladder, unspecified; Z79.82 Long term (current) use of aspirin; Z99.81 Dependence on supplemental oxygen; Z79.899 Other long term (current) drug therapy; Z86.010 Personal history of colon polyps; Z87.891 Personal history of nicotine dependence; Z66 Do not resuscitate
CPT/HCPCS: 36415; 36600; 71046; 80053; 81001; 82550; 82803; 83605; 84484; 85025; 86140; 87040 ×2; 93005; 96365; 96375; 99285; J0696; J7120; 80048; 87070; 87077; 87205; 94640; 94667; 94668; 94760; A9270-GY; J7050

== ENCOUNTER 2019-01-30 07:37 | Day surgery (SDC) | payer MEDICARE, OTHER ==
[~2019-01-30 07:37] MED LIST: Lactated Ringers 1,000 ML IV SCH; ceFAZolin 1 GM Vial IVPUSH ONE
[2019-01-30] MEDS ORDERED: Propofol 200 MG/20 ML SDV ONE (08:01)
[2019-01-30] MEDS ORDERED: Midazolam 1 MG/ML 2 ML SDV ONE (08:01)
[2019-01-30] MEDS ORDERED: fentaNYL 100 MCG/2 ML SDV ONE (08:01)
[2019-01-30] MEDS ORDERED: Bupivacaine 0.25%/EPINEPHrine 1:200,000 30 ML SDV ONE (08:12)
[2019-01-30] MEDS ORDERED: Simethicone Drops 40 MG/0.6 ML 30 ML Bottle ONE ×2 (08:12→08:15)
[2019-01-30] MEDS ORDERED: Sodium Chloride 0.9% 10 ML Syringe FLUSH PRN (08:39)
[2019-01-30] MEDS ORDERED: Morphine PF 5 MG/10 ML SDV ONE (09:05)
[2019-01-30] MEDS ORDERED: ceFAZolin 1 GM Vial ONE (09:28)
[2019-01-30] MEDS ORDERED: Bupivacaine 0.25%/EPINEPHrine 1:200,000 30 ML SDV INJECT ONE ×3 (09:59→10:29)
[2019-01-30] MEDS ORDERED: Ketorolac 30 MG/ML SDV ONE (10:33)
--- NOTE | 2019-01-30 11:27 | OR ---
PREOPERATIVE DIAGNOSIS: Left indirect inguinal hernia. POSTOPERATIVE DIAGNOSIS: Left indirect inguinal hernia. PROCEDURE PROPOSED AND PROCEDURE DONE: Left indirect inguinal hernia repair with mesh. INDICATION: This is an 83-year-old gentleman with a symptomatic left inguinal hernia. He had a right-sided repair done by myself just less than 3 years ago, and he comes in now for elective surgery. TECHNIQUE: The patient was brought to the operative suite, given a spinal anesthetic, and placed in a supine position. The left groin had been trimmed. It was then sterilely prepped and draped. The skin was locally anesthetized with 0.25% Marcaine with epinephrine. An oblique incision was made in the left groin and carried down through the subcutaneous tissue. The external oblique fascia was then opened along the structure and fibers through the external ring. The cord was then freed up from the surrounding structures, and a Gerson drain passed around it for traction. The ilioinguinal nerve was isolated and preserved throughout the dissection. The patient was found to have a moderate- sized indirect hernia sac on the anteromedial aspect of the cord, which was dissected free from the surrounding structures. It was then reduced and held in place with a plug of mesh, which was anchored circumferentially with interrupted 0 Ethibond sutures. A piece of flat mesh was then fashioned to place across the inguinal floor. This was anchored medially to the symphysis pubis, inferiorly to the inguinal ligament, and superiorly to the internal oblique fascia placed around the cord and anchored with several sutures lateral to the cord. The cord and nerve were then placed back in the normal position as the external oblique fascia was closed over the cord with a running 3-0 Vicryl. The subcutaneous tissue was re-approximated with interrupted 3-0 Vicryl, and the skin closed with a subcuticular stitch of 5-0 Vicryl, and a sterile dressing was applied. There was minimal blood loss, and he was then prepared for the 2nd surgery. SCM: 01/30/2019 10:57:18 MODL: 01/30/2019 11:18:40 /[id number]
--- NOTE | 2019-01-30 11:28 | OR ---
PREOPERATIVE DIAGNOSIS: Right carpal tunnel syndrome. POSTOPERATIVE DIAGNOSIS: Right carpal tunnel syndrome. PROCEDURE PROPOSED AND PROCEDURE DONE: Right carpal tunnel decompression. INDICATION: This is an 83-year-old gentleman who is coming in for a left inguinal hernia repair. He also has rather classic symptoms of right carpal tunnel syndrome for the last 4 to 5 months, and he will have that side decompressed as well. TECHNIQUE: The patient was sedated from his inguinal hernia surgery that had just been completed. The right hand and forearm were sterilely prepped and draped. The proximal palmar area was locally anesthetized with 0.25% Marcaine with epinephrine. The arm was then exsanguinated, and the tourniquet inflated to 250 mmHg. A vertical palmar skin incision was made approximately 1 inch in length, carried down through the subcutaneous tissue. The transverse carpal ligament was identified and transected throughout its entirety, freeing up the underlying median nerve. Dissection was carried proximally under the skin as well as distally into the mid portion of the palm. The wound was irrigated, and the skin was closed with interrupted vertical mattress stitches of 5-0 Ethilon. A sterile dressing was applied using Adaptic, eye pad, 4-inch Usha, followed by application of a right wrist brace. The tourniquet was then deflated with a tourniquet time of 12 minutes. He tolerated the procedure well. He was taken back to recovery room in good condition. SCM: 01/30/2019 10:57:18 MODL: 01/30/2019 11:21:51 /[id number]
[2019-01-30] MEDS ORDERED: Ondansetron 4 MG/2 ML SDV IVPUSH PRN (14:06)
[2019-01-30] MEDS ORDERED: Ibuprofen 200 MG Tab PO PRN (14:08)
== END 2019-01-30 15:12 | disposition home or self-care (01) ==
LOC: VM.SDS 07:37
PROVIDERS: ATTEND Surgery
DX: K40.90 Unilateral inguinal hernia, without obstruction or gangrene, not specified as recurrent (principal); G56.01 Carpal tunnel syndrome, right upper limb; I10 Essential (primary) hypertension; E78.00 Pure hypercholesterolemia, unspecified; E29.1 Testicular hypofunction; C91.10 Chronic lymphocytic leukemia of B-cell type not having achieved remission; J44.9 Chronic obstructive pulmonary disease, unspecified; M10.9 Gout, unspecified; N40.0 Benign prostatic hyperplasia without lower urinary tract symptoms; Z79.51 Long term (current) use of inhaled steroids; Z79.82 Long term (current) use of aspirin; Z79.899 Other long term (current) drug therapy
CPT/HCPCS: 00830; 49505; 64721; J0690; J1885; J2250; J2274; J2704; J7120; C1781; J3010

== ENCOUNTER 2019-05-06 08:25 | Emergency (ER) | payer MEDICARE, OTHER ==
[2019-05-06] MEDS ORDERED: Meclizine 25 MG Tab PO ONE (09:08)
--- NOTE | 2019-05-06 09:34 | EDM.PDOC ---
ED HPI GENERAL MEDICAL PROBLEM - General Time Seen by Provider: 05/06/19 08:50 - History of Present Illness INITIAL COMMENTS - FREE TEXT/NARRATIVE: Pt presents with c/o dizziness. Movement does not change dizziness at all, started today. Mild dizziness - Related Data Allergies Allergy/AdvReac Type Severity Reaction Status Date / Time No Known Allergies Allergy Verified 05/06/19 09:07 Home Meds: Home Meds Aspirin [Lo-Dose Aspirin EC] 81 mg PO DAILY 10/11/17 [History] Fluticasone/Salmeterol [Advair 250-50 Diskus] 1 puff INH BID 10/11/17 [History] Tiotropium [Spiriva Handihaler] 1 puff INH DAILY 10/11/17 [History] Simvastatin [Zocor] 20 mg PO BEDTIME 01/26/19 [History] Albuterol Sulfate [Albuterol Sulfate Hfa] 102 gm IH ASDIRECTED PRN 01/30/19 [ History] Multivitamin with Minerals [Multiple Vitamin] 1 tab PO DAILY 05/06/19 [History] Past Medical History HEENT History: Reports: Allergic Rhinitis, Cataract, Hard of Hearing, Impaired Vision, Other (See Below) Other HEENT History: Tinnitis Cardiovascular History: Reports: None, High Cholesterol Respiratory History: Reports: COPD, Other (See Below) Other Respiratory History: HX asbestos exposure Gastrointestinal History: Reports: None, Colon Polyp, Diverticulosis, Other ( See Below) Other Gastrointestinal History: Inguinal hernia Genitourinary History: Reports: Other (See Below) Other Genitourinary History: Self Caths BID Musculoskeletal History: Reports: None, Gout, Other (See Below) Other Musculoskeletal History: DJD. Dupuytren's contracture. Shoulder pain Neurological History: Reports: None, Other (See Below) Other Neuro History: Benign positional vertigo Psychiatric History: Reports: None Endocrine/Metabolic History: Reports: Other (See Below) Other Endocrine/Metabolic History: Impaired fasting glucose Hematologic History: Reports: Other (See Below) Other Hematologic History: Hypogammaglobulinemia. 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, Leukemia Dermatologic History: Reports: None - Infectious Disease History Infectious Disease History: Reports: None - Past Surgical History HEENT Surgical History: Reports: Tonsillectomy GI Surgical History: Reports: Hernia, Inguinal, Polypectomy Male Surgical History: Reports: TURBT-Transurethral Resection of Bladder Tumor, TURP-Transurethral Resection of Prostate Social & Family History - Family History Family Medical History: Noncontributory - Tobacco Use Smoking Status *Q: Former Smoker Used Tobacco, but Quit: Yes Month/Year Tobacco Last Used: 1984 - Caffeine Use Caffeine Use: Reports: Coffee - Living Situation & Occupation Living situation: Reports: Occupation: Retired (Patient is with two-story house 2 children are in the [facility] area one incident [place] and one is in [place]. 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) ED ROS GENERAL - Review of Systems Review Of Systems: See Below Constitutional: Reports: No Symptoms HEENT: Reports: No Symptoms Respiratory: Reports: No Symptoms Cardiovascular: Reports: No Symptoms Endocrine: Reports: No Symptoms GI/Abdominal: Reports: No Symptoms : Reports: No Symptoms Musculoskeletal: Reports: No Symptoms Skin: Reports: No Symptoms Neurological: Reports: Dizziness Psychiatric: Reports: No Symptoms Hematologic/Lymphatic: Reports: No Symptoms Immunologic: Reports: No Symptoms ED EXAM, GENERAL - Physical Exam Exam: See Below Free Text/Narrative:: Pt with eustachian tube dysfunction, will start on daily Flonase for 1-2 wks 2 sprays each nare, Meclizine as directed for dizziness. follow up with pcp as needed Exam Limited By: Altered Mental Status General Appearance: Alert, WD/WN, No Apparent Distress Eye Exam: Bilateral Eye: PERRL Ears: Other (buldging tm bilateral ) Nose: Normal Inspection, Normal Mucosa Throat/Mouth: Normal Inspection, Inflammation Head: Normocephalic Neck: Normal Inspection, Supple, Non-Tender, Full Range of Motion Respiratory/Chest: No Respiratory Distress, Lungs Clear, Normal Breath Sounds, No Accessory Muscle Use, Chest Non-Tender Cardiovascular: Normal Peripheral Pulses, Regular Rate, Rhythm, No Edema, No Gallop, No JVD, No Murmur, No Rub Back Exam: Normal Inspection, Full Range of Motion Extremities: Normal Inspection, Normal Range of Motion, Non-Tender, No Pedal Edema, Normal Capillary Refill Neurological: Alert, Oriented Psychiatric: Normal Affect, Normal Mood Skin Exam: Warm, Dry, Intact, Normal Color, No Rash Course - Vital Signs Last Recorded V/S: Last Vital Signs Temp 35.8 C 05/06/19 08:30 Pulse 65 05/06/19 08:30 Resp 18 05/06/19 08:30 BP 151/93 H 05/06/19 08:30 Pulse Ox 91 L 05/06/19 08:30 - Orders/Labs/Meds Orders: Active Orders 24 hr Category Date Time Status EKG 12 Lead [EKG Documentation Completion] [RC] STAT Care 05/06/19 09:07 Active Labs: Laboratory Tests 05/06/19 05/06/19 Range/Units : 09:19 WBC 14.0 H (4.0-10.0) x10^3/uL RBC 4.56 (4.5-6.0) x10^6/uL Hgb 15.1 (14.0-18.0) g/dL Hct 46.1 (40.0-52.0) % MCV 101.1 H (78.0-93.0) fL MCH 33.1 H (26.0-32.0) pg MCHC 32.8 (32.0-36.0) g/dL RDW Coeff of Kayli 14.0 (10.0-15.0) % Plt Count 153 (130-400) x10^3/uL Add Manual Diff Yes Neutrophils % (Manual) 29 L (50-80) % Lymphocytes % (Manual) 43 (25-50) % Reactive Lymphs % 15 H (0) % Monocytes % (Manual) 10 (2-11) % Blast Cells % 3 H (0) % Smudge Cells Few H Platelet Estimate Adequate Macrocytosis 1+ slight H Sodium 142 (136-145) mmol/L Potassium 4.4 (3.5-5.1) mmol/L Chloride 105 (98-107) mmol/L Carbon Dioxide 29 (21-32) mmol/L Anion Gap 12.4 (10-20) mmol/L BUN 12 (7-18) mg/dL Creatinine 0.8 (0.70-1.30) mg/dL Est Cr Clr Drug Dosing 77.65 mL/min Estimated GFR (MDRD) > 60 Glucose 135 H (74-106) mg/dL Calcium 8.2 L (8.5-10.1) mg/dL Slides for Path Review No Meds: Medications Discontinued Medications Generic Name Dose Route Start Last Admin Trade Name Frank PRN Reason Stop Dose Admin Meclizine HCl 25 mg 05/06/19 09:08 05/06/19 09:15 Antivert PO 05/06/19 09:09 25 mg ONETIME ONE Administration Departure - Departure Time of Disposition: 10:13 Disposition: Home, Self-Care 01 Condition: Good Clinical Impression: Eustachian tube dysfunction - Discharge Information Referrals: Shannon Monzon MD [Primary Care Provider] - Care Plan Goals: daily Flonase for 1-2 wks 2 sprays each nare, Meclizine as directed for dizziness. follow up with pcp as needed - My Orders Last 24 Hours: My Active Orders 05/06/19 09:07 EKG 12 Lead [EKG Documentation Completion] [RC] STAT - Assessment/Plan Last 24 Hours: My Active Orders 05/06/19 09:07 EKG 12 Lead [EKG Documentation Completion] [RC] STAT
[2019-05-06 09:40] LABS: CHLORIDE,CL 105 mmol/L (98-107); SODIUM,NA 142 mmol/L (136-145)
[2019-05-06 09:41] LABS: ANION GAP 12.4 mmol/L (10-20)
== END 2019-05-06 10:20 | disposition home or self-care (01) ==
LOC: VM.ED 08:25
DX: H69.93 Unspecified Eustachian tube disorder, bilateral (principal); E78.00 Pure hypercholesterolemia, unspecified; J44.9 Chronic obstructive pulmonary disease, unspecified; M10.9 Gout, unspecified; Z87.891 Personal history of nicotine dependence; Z79.82 Long term (current) use of aspirin; Z79.899 Other long term (current) drug therapy
CPT/HCPCS: 36415; 80048; 85025; 93005; 99284; A9270; 99283-GF

== ENCOUNTER 2021-02-23 11:48 | Emergency (ER) | payer OTHER, MEDICARE ==
--- NOTE | 2021-02-23 12:32 | EDM.PDOC ---
ED HPI GENERAL MEDICAL PROBLEM - General Chief Complaint: Back Pain or Injury Stated Complaint: back pain Time Seen by Provider: 02/23/21 12:20 Source of Information: Reports: Patient History Limitations: Reports: No Limitations - History of Present Illness INITIAL COMMENTS - FREE TEXT/NARRATIVE: Patient comes into the emergency department with left lower back pain. Patient states that he misstepped at [employer] and ended up falling on the floor. He denies hitting his head or causing any other injury. He has had this lower left back pain now for approximately 2 to 3 months after he hit it on a edge of a table while at a restaurant. Patient states if he aggravates the area it does causes increase in pain and discomfort. He states after his fall today he has noticed increase of pain and discomfort in that area. He denies any range of motion, CMS, hip pain, inability to ambulate, loss of bowel or bladder, chest pain, shortness of breath, dizziness, lightheadedness, blurred vision, or peripheral edema. Patient states that he has no other injuries or concerns and he would just like an evaluation of the left lower back area that is causing tenderness upon palpation. Onset: Sudden Duration: Constant Location: Reports: Back Quality: Reports: Throbbing Severity: Moderate Improves with: Reports: Rest Worsens with: Reports: Movement Associated Symptoms: Reports: No Other Symptoms Left Lower Back Pain Score (Numeric/FACES): 4 - Related Data Allergies Allergy/AdvReac Type Severity Reaction Status Date / Time No Known Allergies Allergy Verified 02/23/21 12:52 Home Meds: Home Meds Aspirin [Lo-Dose Aspirin EC] 81 mg PO DAILY 10/11/17 [History] Fluticasone Propion/Salmeterol [Advair 250-50 Diskus] 1 puff INH BID 10/11/17 [History] Tiotropium [Spiriva Handihaler] 1 puff INH DAILY 10/11/17 [History] Simvastatin [Zocor] 20 mg PO BEDTIME 01/26/19 [History] Albuterol Sulfate [Albuterol Sulfate Hfa] 102 gm IH ASDIRECTED PRN 01/30/19 [History] Multivitamin with Minerals [Multiple Vitamin] 1 tab PO DAILY 05/06/19 [History] Past Medical History HEENT History: Reports: Allergic Rhinitis, Cataract, Hard of Hearing, Impaired Vision, Other (See Below) Other HEENT History: Tinnitis Cardiovascular History: Reports: None, High Cholesterol Respiratory History: Reports: COPD, Other (See Below) Other Respiratory History: HX asbestos exposure Gastrointestinal History: Reports: None, Colon Polyp, Diverticulosis, Other (See Below) Other Gastrointestinal History: Inguinal hernia Genitourinary History: Reports: Other (See Below) Other Genitourinary History: Self Caths BID Musculoskeletal History: Reports: None, Gout, Other (See Below) Other Musculoskeletal History: DJD. Dupuytren's contracture. Shoulder pain Neurological History: Reports: None, Other (See Below) Other Neuro History: Benign positional vertigo Psychiatric History: Reports: None Endocrine/Metabolic History: Reports: Other (See Below) Other Endocrine/Metabolic History: Impaired fasting glucose Hematologic History: Reports: Other (See Below) Other Hematologic History: Hypogammaglobulinemia. 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, Leukemia Dermatologic History: Reports: None - Infectious Disease History Infectious Disease History: Reports: None - Past Surgical History HEENT Surgical History: Reports: Tonsillectomy GI Surgical History: Reports: Hernia, Inguinal, Polypectomy Male Surgical History: Reports: TURBT-Transurethral Resection of Bladder Tumor, TURP-Transurethral Resection of Prostate Social & Family History - Family History Family Medical History: No Pertinent Family History - Caffeine Use Caffeine Use: Reports: Coffee - Living Situation & Occupation Living situation: Reports: Occupation: Retired (Patient is with two-story house 2 children are in the [facility] area one incident [place] and one is in [place]. 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 Constitutional: Reports: No Symptoms HEENT: Reports: No Symptoms Respiratory: Reports: No Symptoms Cardiovascular: Reports: No Symptoms Endocrine: Reports: No Symptoms GI/Abdominal: Reports: No Symptoms : Reports: No Symptoms Musculoskeletal: Reports: Back Pain Skin: Reports: No Symptoms Neurological: Reports: No Symptoms Psychiatric: Reports: No Symptoms Hematologic/Lymphatic: Reports: No Symptoms Immunologic: Reports: No Symptoms ED EXAM, GENERAL - Physical Exam Exam: See Below Exam Limited By: No Limitations General Appearance: Alert, WD/WN, No Apparent Distress Eye Exam: Bilateral Eye: PERRL Head: Atraumatic, Normocephalic Neck: Normal Inspection, Supple, Non-Tender, Full Range of Motion Respiratory/Chest: No Respiratory Distress, Lungs Clear, Normal Breath Sounds, No Accessory Muscle Use, Chest Non-Tender Cardiovascular: Normal Peripheral Pulses, Regular Rate, Rhythm, No Edema, No Rub GI/Abdominal: Normal Bowel Sounds, Soft, Non-Tender, No Abnormal Bruit Back Exam: Normal Inspection, Muscle Spasm Extremities: Normal Inspection, Normal Range of Motion, Non-Tender, Normal Capillary Refill Neurological: Alert, Oriented Psychiatric: Normal Affect, Normal Mood Skin Exam: Warm, Dry, Intact, Normal Color Course - Vital Signs Last Recorded V/S: Last Vital Signs Temp 36.3 C 02/23/21 12:10 Pulse 88 02/23/21 12:10 Resp 28 H 02/23/21 12:10 BP 147/87 H 02/23/21 12:10 Pulse Ox 80 L 02/23/21 12:10 - Orders/Labs/Meds Orders: Active Orders 24 hr Category Date Time Status Lumbar Spine 1V [CR] Stat Exams 02/23/21 12:32 Taken Departure - Departure Time of Disposition: 13:15 Disposition: Home, Self-Care 01 Condition: Good Clinical Impression: Low back strain Qualifiers: Encounter type: initial encounter Qualified Code(s): S39.012A - Strain of muscle, fascia and tendon of lower back, initial encounter - Discharge Information *PRESCRIPTION DRUG MONITORING PROGRAM REVIEWED*: Not Applicable *COPY OF PRESCRIPTION DRUG MONITORING REPORT IN PATIENT NIKI: Not Applicable Instructions: Back Injury Prevention, [id number], Muscle Strain, [id number] Forms: ED Department Discharge Additional Instructions: 1. Rest 2. Can use tylenol and ibuprofen as needed for pain and discomfort 3. Diet as tolerated 4. Activity as tolerated 5. Use ice 3-4 times a day at 20-minute intervals to help with any swelling and discomfort 6. Follow-up with your primary care provider symptoms continue or to progress 7. Follow with any questions or concerns 8. Discharge information has been provided regarding your injury Sepsis Event Note (ED) - Focused Exam Vital Signs: Vital Signs Temp Pulse Resp BP Pulse Ox 02/23/21 12:10 36.3 C 88 28 H 147/87 H 80 L - My Orders Last 24 Hours: My Active Orders 02/23/21 12:32 Lumbar Spine 1V [CR] Stat - Assessment/Plan Last 24 Hours: My Active Orders 02/23/21 12:32 Lumbar Spine 1V [CR] Stat Assessment:: 1. back pain Plan: 1. X-ray completed in the emergency department results reviewed with the patient 2. Script and take home pack sent with the patient 3. Education regarding splinting, activity, [id number] medications, and follow-up care provided. 4. All questions and concerns addressed with the patient prior to discharge
--- NOTE | 2021-02-23 13:17 | CR ---
[id number] RAD/RAD Lumbar Spine 1V EXAM: RAD Lumbar Spine 1V INDICATION: PAIN FROM FALL. COMPARISON: None. DISCUSSION: There is at least mild to moderate spondylosis throughout the lumbar spine. No fracture is identified on this single AP view. Spondylolisthesis cannot be evaluated for. Prominent colonic stool volume. Bilateral osteoarthritis of the hips. IMPRESSION: 1. Mild to moderate lumbar spondylosis. Prakash Frye MD 02/23/21 [id number] Thank you for allowing us to participate in the care of your patient.
== END 2021-02-23 13:27 | disposition home or self-care (01) ==
LOC: VM.ED 11:48
DX: S39.012A Strain of muscle, fascia and tendon of lower back, initial encounter (principal); J44.9 Chronic obstructive pulmonary disease, unspecified; Z79.82 Long term (current) use of aspirin; Z79.899 Other long term (current) drug therapy; W19.XXXA Unspecified fall, initial encounter
CPT/HCPCS: 72020; 99283; 99283-25

== ENCOUNTER 2022-01-19 18:57 | Emergency (ER) | payer MEDICARE, OTHER ==
[2022-01-19 19:38] LABS: ANION GAP 10.9 mmol/L (5-15); CHLORIDE,CL 99 mmol/L (98-107); ESTIMATED GFR 87 mL/min (>=60); SODIUM,NA 140 mmol/L (136-145)
[2022-01-19] MEDS ORDERED: Iopamidol 755 Mg/ML 100 ML Bottle IVPUSH ONE (20:02)
[2022-01-19] MEDS ORDERED: Albuterol 2.5 MG/0.5 ML UD Neb NEB STA (20:34)
== END 2022-01-19 21:43 | disposition home or self-care (01) ==
LOC: VM.ED 18:57
DX: J44.1 Chronic obstructive pulmonary disease with (acute) exacerbation (principal); J44.9 Chronic obstructive pulmonary disease, unspecified; M19.90 Unspecified osteoarthritis, unspecified site; Z79.899 Other long term (current) drug therapy; Z87.891 Personal history of nicotine dependence
CPT/HCPCS: 36415; 71275; 80048; 85025; 85379; 93005; 99284; 99285; J7611; Q9967

== ENCOUNTER 2022-05-12 03:44 | Emergency (ER) | payer MEDICARE, OTHER ==
[2022-05-12 05:01] LABS: CHLORIDE,CL 103 mmol/L (98-107); SODIUM,NA 142 mmol/L (136-145)
[2022-05-12 05:02] LABS: ESTIMATED GFR 90 mL/min (>=60)
== END 2022-05-12 05:55 | disposition home or self-care (01) ==
LOC: VM.ED 03:44
DX: J44.1 Chronic obstructive pulmonary disease with (acute) exacerbation (principal); E78.00 Pure hypercholesterolemia, unspecified; Z79.899 Other long term (current) drug therapy; Z87.891 Personal history of nicotine dependence
CPT/HCPCS: 36415; 71045; 80053; 83880; 84484; 85025; 86140; 99284; 99285

== ENCOUNTER 2022-06-29 20:03 | Inpatient (IN) | payer MEDICARE, OTHER ==
[2022-06-29] MEDS ORDERED: Albuterol/Ipratropium 3.0-0.5 MG/3 ML Neb Soln NEB ONE ×2 (20:17)
[2022-06-29] MEDS ORDERED: methylPREDNISolone Sodium Succinate 125 MG/2 ML SDV IV ONE (20:17)
[2022-06-29] MEDS ORDERED: cefTRIAXone 2 GM Vial IVPUSH ONE (20:45)
[2022-06-29] MEDS ORDERED: Azithromycin 500 MG in Sodium Chloride 0.9% 250 ML IV ONE (20:46)
[2022-06-29 21:07] LABS: PCO2 ARTERIAL,POC 79 mmHg (35-48)
[2022-06-29 21:12] LABS: PTT,PARTIAL THROMBOPLSTIN TIME 25.5 SEC (20.5-30.9)
[2022-06-29 21:23] LABS: CHLORIDE,CL 96 mmol/L (98-107); SODIUM,NA 138 mmol/L (136-145)
[2022-06-29 21:26] LABS: ANION GAP 10.9 mmol/L (5-15); ESTIMATED GFR 73 mL/min (>=60)
[2022-06-29] MEDS ORDERED: Sodium Chloride 0.9% 1,000 ML IV SCH (21:30)
[2022-06-29 21:47] LABS: CORONAVIRUS COVID-19 NAA NEGATIVE (NEGATIVE); RESPIRATORY SYNCYTIAL VIR NAA NEGATIVE (NEGATIVE)
[2022-06-29] MEDS: methylPREDNISolone Sodium Succinate 40 MG/1 ML SDV IVPUSH SCH (23:30)
[2022-06-29] MEDS: Albuterol/Ipratropium 3.0-0.5 MG/3 ML Neb Soln NEB SCH (23:30)
[2022-06-30 02:16] LABS: PCO2 ARTERIAL,POC 82 mmHg (35-48)
[2022-06-30] MEDS: Albuterol/Ipratropium 3.0-0.5 MG/3 ML Neb Soln NEB SCH ×6 (03:40→22:56)
[2022-06-30] MEDS: methylPREDNISolone Sodium Succinate 40 MG/1 ML SDV IVPUSH SCH ×4 (03:45→22:56)
[2022-06-30 07:06] LABS: PCO2 ARTERIAL,POC 73 mmHg (35-48)
[2022-06-30 07:31] LABS: ANION GAP 11.2 mmol/L (5-15)
[2022-06-30] MEDS: Sodium Chloride 0.9% 10 ML Syringe FLUSH PRN ×2 (10:12→16:48)
[2022-06-30] MEDS: Azithromycin 500 MG in Sodium Chloride 0.9% 250 ML IV SCH (19:41)
[2022-06-30] MEDS: cefTRIAXone 1 GM Vial IVPUSH SCH (19:41)
[2022-06-30] MEDS: Simvastatin 20 MG Tab PO SCH (20:24)
[2022-07-01] MEDS: Albuterol/Ipratropium 3.0-0.5 MG/3 ML Neb Soln NEB SCH ×6 (03:48→22:52)
[2022-07-01] MEDS: methylPREDNISolone Sodium Succinate 40 MG/1 ML SDV IVPUSH SCH ×4 (03:48→22:44)
[2022-07-01 06:44] LABS: PCO2 ARTERIAL,POC 76 mmHg (35-48)
[2022-07-01 07:07] LABS: ANION GAP 7.4 mmol/L (5-15)
[2022-07-01] MEDS: Multivitamin Tab PO SCH (08:52)
[2022-07-01] MEDS: cefTRIAXone 1 GM Vial IVPUSH SCH (08:52)
[2022-07-01] MEDS: Sodium Chloride 0.9% 10 ML Syringe FLUSH PRN ×4 (08:53→22:51)
[2022-07-01] MEDS: Azithromycin 500 MG in Sodium Chloride 0.9% 250 ML IV SCH (09:09)
[2022-07-01] MEDS: Enoxaparin 40 MG/0.4 ML Syringe SUBCUT SCH (11:45)
[2022-07-01 12:19] LABS: PCO2 ARTERIAL,POC 44 mmHg (35-48)
[2022-07-01] MEDS: Simvastatin 20 MG Tab PO SCH (20:00)
[2022-07-02] MEDS: methylPREDNISolone Sodium Succinate 40 MG/1 ML SDV IVPUSH SCH (05:44)
[2022-07-02] MEDS: Sodium Chloride 0.9% 10 ML Syringe FLUSH PRN ×2 (05:45→05:49)
[2022-07-02] MEDS: Albuterol/Ipratropium 3.0-0.5 MG/3 ML Neb Soln NEB SCH ×5 (05:54→20:35)
[2022-07-02] MEDS: predniSONE 20 MG Tab PO SCH (09:15)
[2022-07-02] MEDS: Multivitamin Tab PO SCH (09:15)
[2022-07-02] MEDS: Amoxicillin/Clavulanate K 875-125 MG Tab PO SCH ×2 (09:15→20:35)
[2022-07-02] MEDS: Azithromycin 250 MG Tab PO SCH (09:15)
[2022-07-02] MEDS: Enoxaparin 40 MG/0.4 ML Syringe SUBCUT SCH (11:08)
[2022-07-02] MEDS ORDERED: D5 1/2 NS w/ 20 mEq/L KCl 1,000 ML IV SCH (20:00)
[2022-07-02] MEDS ORDERED: Sodium Chloride 0.9% 1,000 ML IV SCH (20:00)
[2022-07-02] MEDS: Simvastatin 20 MG Tab PO SCH (20:35)
[2022-07-03] MEDS: Albuterol/Ipratropium 3.0-0.5 MG/3 ML Neb Soln NEB SCH ×7 (01:04→22:42)
[2022-07-03 06:48] LABS: ANION GAP 5.6 mmol/L (5-15)
[2022-07-03] MEDS: Multivitamin Tab PO SCH (08:55)
[2022-07-03] MEDS: predniSONE 20 MG Tab PO SCH (08:55)
[2022-07-03] MEDS: Azithromycin 250 MG Tab PO SCH (08:55)
[2022-07-03] MEDS: Amoxicillin/Clavulanate K 875-125 MG Tab PO SCH ×2 (08:55→20:12)
[2022-07-03] MEDS: Enoxaparin 40 MG/0.4 ML Syringe SUBCUT SCH (11:17)
[2022-07-03] MEDS: Simvastatin 20 MG Tab PO SCH (20:12)
[2022-07-03] MEDS: Sodium Chloride 0.9% 10 ML Syringe FLUSH PRN (20:15)
[2022-07-04] MEDS: Albuterol/Ipratropium 3.0-0.5 MG/3 ML Neb Soln NEB SCH ×6 (03:37→22:03)
[2022-07-04 08:27] LABS: CHLORIDE,CL 98 mmol/L (98-107); SODIUM,NA 145 mmol/L (136-145)
[2022-07-04] MEDS: Multivitamin Tab PO SCH (08:33)
[2022-07-04] MEDS: Amoxicillin/Clavulanate K 875-125 MG Tab PO SCH ×2 (08:33→20:09)
[2022-07-04] MEDS: predniSONE 20 MG Tab PO SCH (08:33)
[2022-07-04 08:37] LABS: ESTIMATED GFR 94 mL/min (>=60)
[2022-07-04] MEDS: Enoxaparin 40 MG/0.4 ML Syringe SUBCUT SCH (11:25)
[2022-07-04] MEDS: Simvastatin 20 MG Tab PO SCH (20:09)
[2022-07-04] MEDS: Sodium Chloride 0.9% 10 ML Syringe FLUSH PRN (20:12)
[2022-07-05] MEDS: Albuterol/Ipratropium 3.0-0.5 MG/3 ML Neb Soln NEB SCH ×6 (02:17→22:17)
[2022-07-05] MEDS: predniSONE 20 MG Tab PO SCH (08:19)
[2022-07-05] MEDS: Amoxicillin/Clavulanate K 875-125 MG Tab PO SCH (08:19)
[2022-07-05] MEDS: Multivitamin Tab PO SCH (08:19)
[2022-07-05 10:38] LABS: ANION GAP -4.6 mmol/L (5-15)
[2022-07-05] MEDS: Enoxaparin 40 MG/0.4 ML Syringe SUBCUT SCH (11:18)
[2022-07-05] MEDS: Sodium Chloride 0.9% 10 ML Syringe FLUSH PRN (20:04)
[2022-07-05] MEDS: Simvastatin 20 MG Tab PO SCH (20:04)
[2022-07-06] MEDS: Albuterol/Ipratropium 3.0-0.5 MG/3 ML Neb Soln NEB SCH ×6 (02:53→22:07)
[2022-07-06 07:20] LABS: ANION GAP -5.2 mmol/L (5-15)
[2022-07-06] MEDS: Multivitamin Tab PO SCH (08:20)
[2022-07-06] MEDS: predniSONE 20 MG Tab PO SCH (08:20)
[2022-07-06] MEDS ORDERED: Iopamidol 755 Mg/ML 100 ML Bottle IVPUSH ONE (09:44)
[2022-07-06] MEDS: Enoxaparin 40 MG/0.4 ML Syringe SUBCUT SCH (13:06)
[2022-07-06] MEDS: Simvastatin 20 MG Tab PO SCH (20:10)
[2022-07-06] MEDS: Budesonide 0.5 MG/2 ML Neb Susp NEB SCH (20:11)
[2022-07-07] MEDS: Albuterol/Ipratropium 3.0-0.5 MG/3 ML Neb Soln NEB SCH ×6 (02:00→22:58)
[2022-07-07] MEDS: Budesonide 0.5 MG/2 ML Neb Susp NEB SCH ×2 (06:19→20:09)
[2022-07-07] MEDS: Multivitamin Tab PO SCH (08:19)
[2022-07-07] MEDS: predniSONE 20 MG Tab PO SCH (08:20)
[2022-07-07] MEDS: Enoxaparin 40 MG/0.4 ML Syringe SUBCUT SCH (11:49)
[2022-07-07] MEDS ORDERED: Morphine 2 MG/ML SYRINGE IV PRN (14:02)
[2022-07-07] MEDS ORDERED: LORazepam 2 MG/ML SDV IV PRN (14:02)
[2022-07-07] MEDS: Simvastatin 20 MG Tab PO SCH (20:09)
[2022-07-08] MEDS: Albuterol/Ipratropium 3.0-0.5 MG/3 ML Neb Soln NEB SCH ×3 (03:49→11:09)
[2022-07-08] MEDS: Budesonide 0.5 MG/2 ML Neb Susp NEB SCH (06:03)
[2022-07-08] MEDS: predniSONE 20 MG Tab PO SCH (09:08)
[2022-07-08] MEDS ORDERED: LORazepam 2 MG/ML SDV IV SCH (13:00)
== END 2022-07-08 12:56 | disposition swing bed (61) | DRG 871 ==
LOC: VM.ED 20:03 → VM.MS 21:50
PROVIDERS: ADMIT Nurse Practitioner Family; ATTEND Family Medicine
DX: A41.9 Sepsis, unspecified organism (principal); J18.9 Pneumonia, unspecified organism; J44.1 Chronic obstructive pulmonary disease with (acute) exacerbation; J96.90 Respiratory failure, unspecified, unspecified whether with hypoxia or hypercapnia; Z99.81 Dependence on supplemental oxygen; J96.21 Acute and chronic respiratory failure with hypoxia; C91.10 Chronic lymphocytic leukemia of B-cell type not having achieved remission; D84.9 Immunodeficiency, unspecified; J96.22 Acute and chronic respiratory failure with hypercapnia; M10.9 Gout, unspecified; J44.0 Chronic obstructive pulmonary disease with (acute) lower respiratory infection; J90 Pleural effusion, not elsewhere classified; C91.90 Lymphoid leukemia, unspecified not having achieved remission; E44.0 Moderate protein-calorie malnutrition; Z20.822 Contact with and (suspected) exposure to COVID-19; Z68.1 Body mass index [BMI] 19.9 or less, adult; Z66 Do not resuscitate; Z51.5 Encounter for palliative care; E78.5 Hyperlipidemia, unspecified; K59.09 Other constipation; K59.00 Constipation, unspecified; H91.90 Unspecified hearing loss, unspecified ear; H54.7 Unspecified visual loss; E78.00 Pure hypercholesterolemia, unspecified; Z79.899 Other long term (current) drug therapy
CPT/HCPCS: 0241U; 36415; 36600; 71045; 71275; 80048; 80053; 82803; 83605; 83735; 83880; 84100; 84484; 85025; 85027; 85379; 85610; 85730; 86140; 87040; 93005; 93010; 94640; 94660; 94760; 99223; A9270-GY; J0456; J0696; J1650; J2920; J2930; J3490; J7030; J7050; J7512; J7620-GY; Q9967

== ENCOUNTER 2022-07-08 11:22 | Inpatient (IN) | payer MEDICARE, OTHER ==
[2022-07-08] MEDS ORDERED: Morphine 2 MG/ML SYRINGE IV PRN (14:31)
[2022-07-08] MEDS ORDERED: Sodium Chloride 0.9% 10 ML Syringe FLUSH PRN (14:31)
[2022-07-08] MEDS ORDERED: Flumazenil 0.1 MG/ML 5 ML MDV IVPUSH PRN (14:31)
[2022-07-08] MEDS: Albuterol/Ipratropium 3.0-0.5 MG/3 ML Neb Soln NEB SCH ×3 (15:43→22:36)
[2022-07-08] MEDS: LORazepam 2 MG/ML SDV IV SCH (20:03)
[2022-07-08] MEDS: Budesonide 0.5 MG/2 ML Neb Susp NEB SCH (20:03)
[2022-07-08] MEDS: Sodium Chloride 0.9% 10 ML Syringe FLUSH PRN (20:07)
[2022-07-09] MEDS: Albuterol/Ipratropium 3.0-0.5 MG/3 ML Neb Soln NEB SCH ×6 (04:07→23:21)
[2022-07-09] MEDS: Budesonide 0.5 MG/2 ML Neb Susp NEB SCH ×2 (06:02→20:35)
[2022-07-09] MEDS: LORazepam 2 MG/ML SDV IV SCH ×2 (09:40→17:29)
[2022-07-09] MEDS: predniSONE 20 MG Tab PO SCH (09:41)
[2022-07-09] MEDS: Morphine 2 MG/ML SYRINGE IV SCH ×2 (14:38→20:34)
[2022-07-10] MEDS: LORazepam 2 MG/ML SDV IV SCH ×3 (01:02→17:27)
[2022-07-10] MEDS: Albuterol/Ipratropium 3.0-0.5 MG/3 ML Neb Soln NEB SCH ×5 (03:58→18:49)
[2022-07-10] MEDS: Morphine 2 MG/ML SYRINGE IV SCH ×3 (04:00→20:17)
[2022-07-10] MEDS: Budesonide 0.5 MG/2 ML Neb Susp NEB SCH ×2 (06:07→20:17)
[2022-07-10] MEDS: predniSONE 20 MG Tab PO SCH (08:53)
[2022-07-10] MEDS: Sodium Chloride 0.9% 10 ML Syringe FLUSH PRN ×2 (08:53→17:25)
[2022-07-11] MEDS: LORazepam 2 MG/ML SDV IV SCH ×3 (00:01→17:23)
[2022-07-11] MEDS: Morphine 2 MG/ML SYRINGE IV SCH ×3 (03:59→21:01)
[2022-07-11] MEDS: Albuterol/Ipratropium 3.0-0.5 MG/3 ML Neb Soln NEB SCH ×7 (03:59→23:30)
[2022-07-11] MEDS: Budesonide 0.5 MG/2 ML Neb Susp NEB SCH ×2 (06:19→21:02)
[2022-07-11] MEDS: Sodium Chloride 0.9% 10 ML Syringe FLUSH PRN ×3 (08:54→17:21)
[2022-07-11] MEDS: predniSONE 20 MG Tab PO SCH (08:57)
[2022-07-12] MEDS: Albuterol/Ipratropium 3.0-0.5 MG/3 ML Neb Soln NEB SCH ×6 (03:24→22:26)
[2022-07-12] MEDS: Morphine 2 MG/ML SYRINGE IV SCH ×3 (04:00→20:05)
[2022-07-12] MEDS: Budesonide 0.5 MG/2 ML Neb Susp NEB SCH ×2 (06:44→20:06)
[2022-07-12] MEDS: Sodium Chloride 0.9% 10 ML Syringe FLUSH PRN ×2 (09:24→13:22)
[2022-07-12] MEDS: LORazepam 2 MG/ML SDV IV SCH ×3 (09:26→19:03)
[2022-07-12] MEDS: predniSONE 20 MG Tab PO SCH (09:27)
[2022-07-13] MEDS: LORazepam 2 MG/ML SDV IV SCH ×3 (01:42→17:42)
[2022-07-13] MEDS: Albuterol/Ipratropium 3.0-0.5 MG/3 ML Neb Soln NEB SCH ×6 (03:59→22:02)
[2022-07-13] MEDS: Morphine 2 MG/ML SYRINGE IV SCH ×3 (04:04→21:56)
[2022-07-13] MEDS: Budesonide 0.5 MG/2 ML Neb Susp NEB SCH ×2 (07:45→21:57)
[2022-07-13] MEDS: predniSONE 20 MG Tab PO SCH ×2 (09:20→13:13)
[2022-07-14] MEDS: LORazepam 2 MG/ML SDV IV SCH ×3 (02:08→16:58)
[2022-07-14] MEDS: Albuterol/Ipratropium 3.0-0.5 MG/3 ML Neb Soln NEB SCH ×6 (02:10→23:59)
[2022-07-14] MEDS: Morphine 2 MG/ML SYRINGE IV SCH ×3 (06:02→20:29)
[2022-07-14] MEDS: Budesonide 0.5 MG/2 ML Neb Susp NEB SCH ×2 (07:22→20:29)
[2022-07-14] MEDS: predniSONE 20 MG Tab PO SCH (08:32)
[2022-07-14] MEDS: Sodium Chloride 0.9% 10 ML Syringe FLUSH PRN (20:30)
[2022-07-15] MEDS: Albuterol/Ipratropium 3.0-0.5 MG/3 ML Neb Soln NEB SCH ×6 (03:58→23:52)
[2022-07-15] MEDS: Morphine 2 MG/ML SYRINGE IV SCH ×3 (04:00→20:08)
[2022-07-15] MEDS: Budesonide 0.5 MG/2 ML Neb Susp NEB SCH ×2 (06:03→20:08)
[2022-07-15] MEDS: predniSONE 20 MG Tab PO SCH (08:32)
[2022-07-15] MEDS: LORazepam 2 MG/ML SDV IV SCH ×3 (08:32→17:25)
[2022-07-15] MEDS: Sodium Chloride 0.9% 10 ML Syringe FLUSH PRN (20:08)
[2022-07-16] MEDS: Albuterol/Ipratropium 3.0-0.5 MG/3 ML Neb Soln NEB SCH ×2 (04:38→06:00)
[2022-07-16] MEDS: Morphine 2 MG/ML SYRINGE IV SCH (06:00)
[2022-07-16] MEDS: Budesonide 0.5 MG/2 ML Neb Susp NEB SCH (06:00)
[2022-07-16] MEDS: LORazepam 2 MG/ML SDV IV SCH ×2 (08:40)
[2022-07-16] MEDS ORDERED: predniSONE 10 MG Tab PO SCH (09:00)
== END 2022-07-16 11:20 | DRG 951 ==
LOC: UNDOADMIN 12:56 → VM.MS 12:56
PROVIDERS: ADMIT Family Medicine; ATTEND Family Medicine
DX: Z51.5 Encounter for palliative care (principal); J96.11 Chronic respiratory failure with hypoxia; J44.9 Chronic obstructive pulmonary disease, unspecified; E78.5 Hyperlipidemia, unspecified; K59.09 Other constipation; Z20.822 Contact with and (suspected) exposure to COVID-19; Z79.52 Long term (current) use of systemic steroids; Z85.6 Personal history of leukemia; Z79.899 Other long term (current) drug therapy
CPT/HCPCS: 94640; 94760; 97110-GP; 97161-GP; J2060; J2270; J3490; J7512; J7620-GY; U0002